=== PATIENT | female | born 1970 | race Asian ===

== ENCOUNTER 2023-09-16 16:48 | Emergency (ER) | payer MEDICAID ==
[~2023-09-16] VITALS: Ht 157.5 cm; Wt 75.0 kg
[2023-09-16 16:52] VITALS: TEMP 98
[2023-09-16 17:37] LABS: BASOPHILS % (AUTO) 0.1 % (0.0-2.0); EOSINOPHILS % (AUTO) 0.1 % (1.0-6.0); HEMATOCRIT 38.6 % (36-46); HEMOGLOBIN 12.6 g/dL (12.0-16.0); LYMPHOCYTES # (AUTO) 1.2 K/uL (1.0-4.8); LYMPHOCYTES % (AUTO) 8.3 % (22.0-44.0); MEAN CORPUSCULAR HEMOGLOBIN 27.2 pg (26.0-34.0); MEAN CORPUSCULAR HGB CONC 32.6 G/dL (31.0-37.0); MEAN CORPUSCULAR VOLUME 84 fL (80-100); MONOCYTES # (AUTO) 0.8 K/uL (0.1-1.0); MONOCYTES % (AUTO) 5.8 % (2.0-9.0); NEUTROPHILS # (AUTO) 12.4 K/uL (1.8-7.7); PLATELET COUNT (AUTO) 261 K/uL (150-450); RED BLOOD CELL COUNT(AUTO) 4.62 MIL/uL (4.00-5.20); RED CELL DISTRIBUTION WIDTH 13.6 % (11.5-14.5); WHITE BLOOD COUNT (AUTO) 14.5 K/uL (4.5-11.0)
[2023-09-16 17:38] LABS: NEUTROPHILS % (AUTO) 85.7 % (40.0-70.0)
[2023-09-16 17:47] LABS: CARBON DIOXIDE 27 mmol/L (22-29)
[2023-09-16] MEDS: SODIUM CHLORIDE 0.9% 1,000 ML IV ONE (17:47)
[2023-09-16] MEDS: ACETAMINOPHEN 1000 MG/ISO-OSM 100 ML IV ONE (17:47)
[2023-09-16] MEDS: ONDANSETRON HCL 4 MG/2 ML VIAL IVP ONE (17:48)
[2023-09-16] MEDS: MECLIZINE HCL 25 MG TABLET PO ONE (17:48)
[2023-09-16 18:05] LABS: ALANINE AMINOTRANSFERASE 28 U/L (12-78); ALBUMIN 3.8 g/dL (3.4-5.0); ALKALINE PHOSPHATASE 71 U/L (46-116); ANION GAP 11 mmol/L (8-16); ASPARTATE AMINOTRANSFERASE 19 U/L (15-37); BILIRUBIN,TOTAL 0.3 mg/dL (0.1-1.0); CALCIUM, TOTAL 8.8 mg/dL (8.8-10.5); CHLORIDE 101 mmol/L (98-107); CREATININE 0.86 mg/dL (0.60-1.30); GLOMERULAR FILTR. RATE CALC > 60 mL/min (>60); GLUCOSE,RANDOM 166 mg/dL (70-110); LIPASE 26 U/L (16-77); POTASSIUM 3.4 mmol/L (3.5-5.1); SODIUM SERUM 139 mmol/L (136-145); UREA NITROGEN, BLOOD 17 mg/dL (7-18)
[2023-09-16 18:44] VITALS: BP 132/84; PULSE 74; RESP 16
[2023-09-16] MEDS ORDERED: ONDA-104 PO (19:20)
[2023-09-16] MEDS ORDERED: MECL-302 PO (19:20)
== END 2023-09-16 20:07 | disposition home or self-care (01) ==
LOC: EMS 16:48
DX: R11.2 Nausea with vomiting, unspecified (principal); R42 Dizziness and giddiness
CPT/HCPCS: 99285; 96365; 70450; 96375; 80048; 80076; 83690; 83735; 84703; 85025; 36415; 93005; J2405; J7030; J0131